=== PATIENT | female | born 1955 | race Two or more races ===

== ENCOUNTER 2016-05-31 21:21 | Emergency (ER) | payer BC, OTHER ==
[~2016-05-31] VITALS: Ht 157.5 cm; Wt 69.5 kg
[~2016-05-31 21:21] MED LIST: NO MEDS TAKEN
[2016-05-31 21:23] VITALS: Ht 157.5 cm; Wt 69.5 kg
[2016-05-31] MEDS ORDERED: TETRACAINE 0.5% 4 ML OPH LEFT EYE ONE (22:00)
[2016-05-31 22:36] VITALS: BP 129/86; PULSE 87; RESP 17; TEMP 98.3
--- NOTE | 2016-05-31 23:37 | ERD ---
ER Documentation Chief Complaint Date/Time DATE: 05/31/16 TIME: 23:33 Chief Complaint left eye redness x 2 hours. denies injury HPI 7-year-old female with a past medical history of hyperlipidemia, hypothyroidism , diabetes presents to the ED complaining of left eye redness that started 2 hours ago. Denies any injuries. Denies any eye pain, blurred vision, photophobia, headache, diplopia, weakness, chest pain, shortness of breath, numbness or tingling. Denies any foreign body sensation. States that she wears glasses but denies wearing any contacts. States that she takes levothyroxine, metformin and fenofibrate. Denies taking any blood thinners. ROS All systems reviewed and are negative except as per history of present illness. Medications Home Meds Reported Medications [No Meds Taken] No Conflict Check 04/16/10 Allergies Allergies: Coded Allergies: No Known Allergies (Verified Allergy, Mild, 05/31/16) PMhx/Soc History of Surgery: Yes (BTL) Anesthesia Reaction: No Hx Neurological Disorder: No Hx Respiratory Disorders: No Hx Cardiac Disorders: Yes (high cholesterol, HTN) Hx Psychiatric Problems: No Hx Miscellaneous Medical Probl: Yes (DM2, hyperthyroidism) Hx Alcohol Use: No Hx Substance Use: No Hx Tobacco Use: No Physical Exam Vitals Vital Signs Date Time Temp Pulse Resp B/P Pulse Ox O2 Delivery O2 Flow Rate FiO2 05/31/16 22:36 98.3 87 17 129/86 99 Room Air 05/31/16 21:23 98.3 91 20 138/88 99 Physical Exam Const: [id number], well-nourished. In no acute distress. Head: Atraumatic, normocephalic Eyes: Right normal Conjunctiva without injection. Left subconjunctival hemorrhage noted. No hyphema. Red reflex appreciated. No purulent discharge. PERRLA. EOMI ENT: Normal external ear. Ear canal without erythema. Tympanic membrane pearly mora without effusion or bulging. Nasal canal clear with normal turbinates. Moist oropharynx without tonsillar exudates. Non-erythematous pharynx. Uvula midline. No drooling. No trismus. Neck: No cervical midline tenderness. Full range of motion. No meningismus. No cervical lymphadenopathy. No JVD. Resp: Clear to auscultation bilaterally. No wheezing, rhonchi, rales, or crackles. No accessory muscle use. No retractions. Cardio: Regular rate and rhythm. No murmurs, rubs or gallops. Abd: Soft, non tender, non distended. Normal bowel sounds. No palpable masses. No rebound tenderness. No guarding. Negative McBurney's Point. Negative Caballero's Sign. Skin: Normal skin turgor. No petechiae or rashes Back: No midline tenderness. No CVA tenderness. Ext: No cyanosis, or edema. Distal pulses intact bilaterally. Neur: Awake and alert. Normal gait. Normal coordination. Cranial Nerves II- VII intact. Normal finger to nose. Muscle strength 5/5. Sensation intact. Psych: Normal Mood and Affect Results 24 hrs Current Medications Medications (Trade) Dose Ordered Sig/Kecia Route PRN Reason Start Time Stop Time Status Last Admin Dose Admin Tetracaine HCl (Tetracaine 0.5% Steri-Unit Akren) 1 drop ONCE ONCE LEFT EYE 05/31/16 22:00 05/31/16 22:01 DC Procedures/MDM This is a 61-year-old female with a past medical history of hyperlipidemia, hypothyroidism, diabetes presents to the ED complaining of left eye redness that started 2 hours ago. Patient is afebrile and nontoxic-appearing. Patient has normal vital signs. Patient gave consent to do a Yfn-Pen exam to check for intraocular pressures. Eye Exam w/ Wood's lamp: Visual Acuity: L 20/20 R 20/20 Bilateral 20/20 Visual Villalpando: Intact in all four quadrants bilaterally Lac ducts/glands: No swelling Lids w/ evertion: Normal, no foreign body Anterior Chamber: Clear Tonopen readings: Right 26 mmHg Left 20 mmHg Patient's ocular symptoms have stabilized while they have been evaluated in the department and are appropriate for outpatient work up. Patient likely sustained a subconjunctival hemorrhage. Low suspicion for ruptured globe, retinal detachment, periorbital cellulitis, acute angle closure glaucoma, deep space infection, iritis, traumatic hyphema, conjunctivitis, corneal abrasion, corneal ulcer, pterygium, hypopyon, blepharitis, hordeolum, chalazion, or other emergent conditions. Patient was instructed to follow-up with the [employer] crewmember within 24 hours. Instructed patient to return to the ED sooner for any worsening symptoms. Patient's questions were answered. Patient understood and agreed with discharge plan. Patient discharged stable. Departure Diagnosis: Primary Impression: Redness of left eye Condition: Stable Patient Instructions: Subconjunctival Hemorrhage Referrals: [facility] YOU HAVE RECEIVED A MEDICAL SCREENING EXAM AND THE RESULTS INDICATE THAT YOU DO NOT HAVE A CONDITION THAT REQUIRES URGENT TREATMENT IN THE EMERGENCY DEPARTMENT. FURTHER EVALUATION AND TREATMENT OF YOUR CONDITION CAN WAIT UNTIL YOU ARE SEEN IN YOUR DOCTORS OFFICE WITHIN THE NEXT 1-2 DAYS. IT IS YOUR RESPONSIBILITY TO MAKE AN APPOINTMENT FOR FOLOW-UP CARE. IF YOU HAVE A PRIMARY DOCTOR --you should call your primary doctor and schedule an appointment IF YOU DO NOT HAVE A PRIMARY DOCTOR YOU CAN CALL OUR PHYSICIAN REFERRAL HOTLINE AT IF YOU CAN NOT AFFORD TO SEE A PHYSICIAN YOU CAN CHOSE FROM THE FOLLOWING [facility] [address] [facility] [address] [facility] [facility] [address] [facility] [address] [facility] [address] [facility]. [facility]. [address] [facility]. [facility] YOU HAVE RECEIVED A MEDICAL SCREENING EXAM AND THE RESULTS INDICATE THAT YOU DO NOT HAVE A CONDITION THAT REQUIRES URGENT TREATMENT IN THE EMERGENCY DEPARTMENT. FURTHER EVALUATION AND TREATMENT OF YOUR CONDITION CAN WAIT UNTIL YOU ARE SEEN IN YOUR DOCTORS OFFICE WITHIN THE NEXT 1-2 DAYS. IT IS YOUR RESPONSIBILITY TO MAKE AN APPOINTMENT FOR FOLOW-UP CARE. IF YOU HAVE A PRIMARY DOCTOR --you should call your primary doctor and schedule and appointment IF YOU DO NOT HAVE A PRIMARY DOCTOR YOU CAN CALL OUR PHYSICIAN REFERRAL HOTLINE AT . IF YOU CAN NOT AFFORD TO SEE A PHYSICIAN YOU CAN CHOSE FROM THE FOLLOWING [facility]: [facility] [address] [place] [address] [facility] [address] [place] [address] [facility] + [facility] [address] [place] [address] [facility] Hours: Wed - Wed 9:00 AM - 5:00 PM Additional Instructions: Seguimiento con un oftalmlogo en 24 horas. Regrese a estas instalaciones si no se mejora sanjay esperbamos o sanjay le dijimos. OTTONIEL WELCH PA-C May 31, 2016 23:37 OTTONIEL WELCH PA-C May 31, 2016 23:37
== END 2016-05-31 22:54 | disposition home or self-care (01) ==
LOC: FTE 21:21
DX: H57.8 Other specified disorders of eye and adnexa (principal); I10 Essential (primary) hypertension; E11.9 Type 2 diabetes mellitus without complications; E03.9 Hypothyroidism, unspecified
CPT/HCPCS: 99282